=== PATIENT | male | born 1945 | race Caucasian/White ===

== ENCOUNTER 2024-10-04 07:05 | Inpatient (IN) | payer MEDICARE ==
[~2024-10-04] VITALS: Ht 180.3 cm; Wt 72.6 kg
[2024-10-04] MEDS ORDERED: Magnesium Hydroxide 30 ML UDC PO PRN (12:15)
[2024-10-04] MEDS ORDERED: ACETAMINOPHEN 325 MG TAB PO PRN (12:15)
[2024-10-04] MEDS ORDERED: MG-AL HYDROXIDE/SIMETICONE 30 ML UDC PO PRN (12:15)
[2024-10-04] MEDS ORDERED: Menthol/Zinc Oxide 4 GM THIN T PRN (12:20)
[2024-10-04] MEDS ORDERED: CEFDINIR300 MG PO (12:41)
[2024-10-04] MEDS ORDERED: LORazepam 1 MG TAB PO PRN (12:45)
[2024-10-04] MEDS ORDERED: hydrOXYzine hydrochloride 50 MG/ML VIAL IM PRN (12:45)
[2024-10-04] MEDS ORDERED: hydrOXYzine pamoate 25 MG CAP PO PRN (12:50)
[2024-10-04] MEDS ORDERED: Ziprasidone Mesylate 20 MG VIAL IM PRN (12:50)
[2024-10-04 16:11] LABS: BILIRUBIN Negative (Negative); BLOOD 3+ (Negative); CLARITY Turbid (Clear); COLOR Orange (Yellow); GLUCOSE Negative (Negative); KETONE 2+ (Negative); LEUKO ESTERASE 2+ (Negative); NITRITE Negative (Negative)
[2024-10-04 16:36] LABS: BACTERIA 2+; RBC TNTC rbc/hpf (0-2); WBC TNTC wbc/hpf (0-5)
[2024-10-04] MEDS ORDERED: CEFDINIR 300 MG CAP PO SCH (19:00)
[2024-10-04 19:03] VITALS: BP 121/71
[2024-10-04 20:00] VITALS: BP 94/46
[2024-10-04] MEDS ORDERED: Mirtazapine 15 MG TAB PO SCH (21:00)
[2024-10-05 06:12] LABS: ALKALINE PHOSPHATASE 58 U/L (46-116); BUN 7 mg/dl (9-23); CHLORIDE 99 mmol/L (98-107); CHOLESTEROL 166 mg/dL (<200); LDL CHOLESTEROL 110 mg/dL (9-159); POTASSIUM 3.8 mmol/L (3.4-5.1); SGPT/ALT 7 U/L (5-49); TOTAL PROTEIN 5.8 gm/dL (6.0-8.0); TRIGLYCERIDES 77 mg/dl (<150)
[2024-10-05 06:17] LABS: BASO % 0.7 % (0.0-1.0); EOS # 0.1 10*3/uL (0.0-0.4); EOS % 3.5 % (1.0-4.0); HEMATOCRIT 32.6 % (42.0-52.0); MEAN CELL VOLUME 81.9 fl (80.0-94.0); MEAN CORPUSCULAR HGB 25.9 pg (27.0-31.0); MEAN CORPUSCULAR HGB CONC 31.6 g/dl (33.0-37.0); MONO # 0.4 10*3/uL (0.1-1.0); MONO % 15.5 % (3.0-9.0); NEUT # 1.4 10*3/uL (2.3-7.9); PLATELET COUNT AUTOMATED 471 10*3/uL (130-400); RED BLOOD COUNT 3.98 10*6/uL (4.50-5.90); RED CELL DISTRI WIDTH 14.6 % (0-14.5); WHITE BLOOD COUNT 2.8 10*3/uL (4.8-10.8)
[2024-10-05 06:51] LABS: VITAMIN D, 25-HYDROXY 34.9 ng/mL (30-100)
[2024-10-05 08:00] VITALS: BP 114/61
[2024-10-05] MEDS ORDERED: Memantine Hydrochloride 5 MG TAB PO SCH (09:00)
[2024-10-05 20:00] VITALS: BP 106/55
[2024-10-06 08:06] VITALS: BP 95/57
[2024-10-06 19:16] VITALS: BP 104/54
[2024-10-07 08:18] VITALS: BP 96/53
[2024-10-07 20:00] VITALS: BP 123/59
[2024-10-08 07:51] VITALS: BP 98/50
[2024-10-08] MEDS ORDERED: MIRTAZAPINE15 M2 PO (10:11)
[2024-10-08] MEDS ORDERED: NAMENDA-5 PO (10:11)
== END 2024-10-08 11:14 | disposition home or self-care (01) | DRG 885 ==
LOC: 3N 07:05
PROVIDERS: ADMIT Psychiatry & Neurology Psychiatry; ATTEND Psychiatry & Neurology Psychiatry
PROC: GZHZZZZ Group Psychotherapy (ICD-10-PCS; principal; 2024-10-05)
DX: F33.2 Major depressive disorder, recurrent severe without psychotic features (principal); E43 Unspecified severe protein-calorie malnutrition; N30.00 Acute cystitis without hematuria; R45.851 Suicidal ideations; C67.9 Malignant neoplasm of bladder, unspecified; Z90.49 Acquired absence of other specified parts of digestive tract; Z82.49 Family history of ischemic heart disease and other diseases of the circulatory system; Z68.22 Body mass index [BMI] 22.0-22.9, adult